=== PATIENT | female | born 1960 | race Caucasian/White ===

== ENCOUNTER 2016-04-04 17:47 | Emergency (ER) | payer OTHER ==
[2016-04-04 18:43] VITALS: BP 133/89
--- NOTE | 2016-04-04 19:38 | UC ---
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 - History of Current Complaint Chief Complaint: UCLowerExtremity Stated Complaint: KNEE PAIN Time Seen by Provider: 04/04/16 19:13 Hx Obtained From: Patient Hx Last Menstrual Period: 2.5 weeks ago - irregular as she's going through menopause ?: No Onset/Duration: Gradual Onset, Lasting Days, Still Present Severity Initially: Mild Severity Currently: Moderate Character: Aching, Stiffness Aggravating Factor(s): Nothing Alleviating Factor(s): Nothing Associated Signs And Symptoms: Positive: Swelling - posterior right knee Able to Bear Weight: Yes - Allergies/Home Medications Allergies/Adverse Reactions: Allergies Allergy/AdvReac Type Severity Reaction Status Date / Time No Known Allergies Allergy Verified 08/30/12 08:55 Home Medications: Home Medications Aspirin [Eq Aspirin] 325 mg PO 04/04/16 [History] Fluticasone NASAL SPRAY 50MCG* [Flonase NASAL SPRAY 50MCG*] 2 spray BOTH NARES DAILY 04/04/16 [History Confirmed 04/04/16] PMH/Surg Hx/FS Hx/Imm Hx Previously Healthy: Yes Endocrine History Of: Denies: Diabetes, Thyroid Disease Cardiovascular History Of: Denies: Cardiac Disorders, Hypertension Respiratory History Of: Denies: COPD, Asthma GI/ History Of: Denies: Ulcer Cancer History Of: Denies: Breast Cancer - Surgical History Surgical History: Yes Surgery Procedure, Year, and Place: csection x 3, carpal tunnel right - Family History Known Family History: Positive: Cardiac Disease - Social History Occupation: Employed Full-time Lives: With Family Alcohol Use: Occasionally Substance Use Type: None Smoking Status (MU): Never Smoked Tobacco Review of Systems Constitutional: Negative Skin: Bruising - patient feels the area feels bruised Eyes: Negative ENT: Negative Respiratory: Negative Cardiovascular: Negative Gastrointestinal: Negative Genitourinary: Negative Motor: Negative Neurovascular: Negative Musculoskeletal: Myalgia - posterior right knee and proximal calf Neurological: Negative Psychological: Negative All Other Systems Reviewed And Are Negative: Yes Physical Exam Triage Information Reviewed: Yes Appearance: Well-Appearing, No Pain Distress, Well-Nourished Vital Signs: Initial Vital Signs Temp 97.9 F 04/04/16 18:38 Pulse 67 04/04/16 18:38 Resp 18 04/04/16 18:38 BP 133/89 04/04/16 18:38 Pulse Ox 99 04/04/16 18:38 Vital Signs Reviewed: Yes Eye Exam: Normal Eyes: Positive: Conjunctiva Clear ENT Exam: Normal ENT: Positive: Normal ENT inspection, Hearing grossly normal. Negative: Nasal congestion, Nasal drainage, Trismus, Muffled/hoarse voice Dental Exam: Normal Neck exam: Normal Neck: Positive: Supple, Nontender Respiratory Exam: Normal Respiratory: Positive: Chest non-tender, Lungs clear, Normal breath sounds, No respiratory distress, No accessory muscle use Cardiovascular Exam: Normal Cardiovascular: Positive: RRR, No Murmur, Pulses Normal, Brisk Capillary Refill Musculoskeletal Exam: Normal Musculoskeletal: Positive: Strength Intact, ROM Intact, No Edema Neurological Exam: Normal Neurological: Positive: Alert, Muscle Tone Normal Psychological Exam: Normal Skin Exam: Normal Knee Pain Course/Dx - Course Course Of Treatment: transfer to [facility] [place] - Differential Dx/Diagnosis Differential Diagnosis/HQI/PQRI: Abrasion, DVT, Other - bakers cyst Provider Diagnoses: R knee pain - Physician Notifications Discussed Patient Care With: Katheryn GANDARA Time Discussed With Above Provider: 19:45 Instructed by Provider To: Transfer Discharge - Discharge Plan Condition: Guarded Disposition: AGAINST MEDICAL ADVICE Referrals: Rebekah Bernstein MD [Primary Care Provider] -
== END 2016-04-04 20:10 | disposition left against medical advice (07) ==
LOC: UCEAST 17:47
DX: M25.561 Pain in right knee (principal); M25.461 Effusion, right knee
CPT/HCPCS: 99212; G0463

== ENCOUNTER 2016-04-04 20:32 | Emergency (ER) | payer OTHER ==
--- NOTE | 2016-04-05 00:16 | ED ---
Lower Extremity - HPI Summary HPI Summary: 55 female presents from [facility] complaining of right lower extremity pain that began 2-3 days ago and has been progressively been getting worse. Patient states the pain is aching and "Feels like something is there that shouldn't be". The pain gets worse when putting pressure on her leg, such as walking, pushing off the wall with swimming and pushing down a gas pedal while driving. She also states it is worse when she keeps her leg still for long periods of time without moving it. She had a difficulty time sleeping last night. She has no history of blood clots and no pertinent medical history. She takes aspirin per her primary care doctor due to positive family history. Aspirin is all she has taken for this pain. She is taking hormonal replacement therapy. Denies difficulty breathing or chest pain at this time. Denies recent travel, prolonged bedrest and tobacco use. Has no noticed any swelling or redness. No injury or trauma recently. She does recall an injury last September 2015 to the same area but was never diagnosed with a specific injury, was told it was possibly a gibbs's cyst at the time. no problems since then until now. Patient does work out every day and has not stopped since the pain began. - History of Current Complaint Chief Complaint: EDExtremityLower Stated Complaint: UCEAST XFER-R/O BLOOD CLOT RIGHT LEG Time Seen by Provider: 04/04/16 22:16 Hx Obtained From: Patient Hx Last Menstrual Period: 2.5 weeks ago - irregular as she's going through menopause, also on HRT Onset/Duration: Worse Since Severity Initially: Mild Severity Currently: Moderate Pain Intensity: 6 Pain Scale Used: 0-10 Numeric Timing: Constant Location: Is Discrete @ - posterior right calf just below the knee, more towards the lateral side Character Of Pain: Aching Associated Signs And Symptoms: Positive: Negative Aggravating Factor(s): Ambulation, Weight Bearing Alleviating Factor(s): Rest, Elevation Able to Bear Weight: Yes - Risk Factors DVT Risk Factors: Oral Contraceptives - HRT - Allergies/Home Medications Allergies/Adverse Reactions: Allergies Allergy/AdvReac Type Severity Reaction Status Date / Time No Known Allergies Allergy Verified 08/30/12 08:55 PMH/Surg Hx/FS Hx/Imm Hx Endocrine/Hematology History: Denies: Hx Diabetes, Hx Thyroid Disease Cardiovascular History: Denies: Hx Hypertension Respiratory History: Denies: Hx Asthma, Hx Chronic Obstructive Pulmonary Disease (COPD) GI History: Reports: Other GI Disorders - pelvic pain Denies: Hx Ulcer Musculoskeletal History: Reports: Other Musculoskeletal History - osteoarthritis Denies: Hx Osteoporosis - Cancer History Hx Chemotherapy: No Hx Radiation Therapy: No - Surgical History Surgery Procedure, Year, and Place: csection x 3, carpal tunnel right Infectious Disease History: No Infectious Disease History: Denies: Hx Hepatitis, Hx Human Immunodeficiency Virus (HIV), Traveled Outside the [place] in Last 30 Days - Family History Known Family History: Positive: Cardiac Disease, Hypertension, Diabetes - Social History Alcohol Use: Occasionally Substance Use Type: Reports: None Smoking Status (MU): Never Smoked Tobacco Review of Systems Constitutional: Negative Eyes: Negative ENT: Negative Cardiovascular: Negative Respiratory: Negative Gastrointestinal: Negative Genitourinary: Negative Positive: Arthralgia, Myalgia - right calf Skin: Negative Neurological: Negative Psychological: Normal All Other Systems Reviewed And Are Negative: Yes Physical Exam Triage Information Reviewed: Yes Vital Signs On Initial Exam: Initial Vitals Temp Pulse Resp BP Pulse Ox 97.7 F 66 16 114/77 99 04/04/16 20:50 04/04/16 20:50 04/04/16 20:50 04/04/16 20:50 04/04/16 20:50 not tachycardic or hypoxic Vital Signs Reviewed: Yes Appearance: Positive: Well-Appearing, No Pain Distress, Well-Nourished Skin: Positive: Warm, Skin Color Reflects Adequate Perfusion - < 2 seconds, Dry Head/Face: Positive: Normal Head/Face Inspection Eyes: Positive: Conjunctiva Clear ENT: Positive: Hearing grossly normal Dental: Negative: Cervical Lymphadenopathy Neck: Positive: Supple, Nontender Respiratory/Lung Sounds: Positive: Clear to Auscultation, Breath Sounds Present Cardiovascular: Positive: Normal, RRR, Pulses are Symmetrical in both Upper and Lower Extremities - 2+ pedal b/l. Negative: Leg Edema Left, Leg Edema Right Abdomen Description: Positive: Nontender Bowel Sounds: Positive: Present Musculoskeletal: Positive: Normal - no signs of deformity, edema, eryhema, ecchymosis noted., Strength/ROM Intact, Pain @ - discomfort on palpation of right posterior calf just below the knee, more on lateral side. Negative: María Sign Left, María Sign Right, Edema Left, Edema Right Neurological: Positive: Normal, Sensory/Motor Intact, Alert, Oriented to Person Place, Time, CN Intact II-III, Reflexes Intact Psychiatric: Positive: Normal Diagnostics - Vital Signs Vital Signs Temp Pulse Resp BP Pulse Ox 04/04/16 21:30 98.3 F 117 120/76 99 04/04/16 20:50 97.7 F 66 16 114/77 99 - Laboratory Lab Statement: Any lab studies that have been ordered have been reviewed, and results considered in the medical decision making process. - Ultrasound No standard instances Ultrasound Interpretation: No Acute Changes - No DVT. Ultrasound Interpretation Completed By: Radiologist Re-Evaluation - Re-Evaluation First Eval Re-Evaluation Time: 00:29 Change: Unchanged Comment: patient is still doing ok. updated on current plan and denies pain management at this time Lower Extremity Course/Dx - Course Course Of Treatment: US of right lower extremity obtained and negative. patient refused pain management at this time and states she will take OTC ibuprofen at home for the pain. aware of worsening signs and symptoms to watch out for. - Diagnoses Differential Diagnosis/HQI/PQRI: Positive: Contusion, Phlebitis, Sprain, Strain Provider Diagnoses: Strain of calf muscle Discharge - Discharge Plan Condition: Stable Disposition: HOME Patient Education Materials: Muscle Strain (ED) Referrals: Rebekah Bernstein MD [Primary Care Provider] - Additional Instructions: Take Ibuprofen as needed to help with pain and inflammation. Rest and ice/heat the area of pain. Refrain from physical activity until symptoms resolve. Symptoms may last 7 days. If symptoms worsen such as increasing pain or new symptoms develop such as swelling, redness, numbness/tingling or difficulty breathing please seek medical attention promptly. Follow-up with primary care doctor is recommended.
[2016-04-05 01:39] VITALS: BP 121/79
--- NOTE | 2016-04-05 07:51 | RAD ---
HISTORY: Swelling of right lower extremity COMPARISONS: None relevant TECHNIQUE: Multiple transverse and longitudinal ultrasound images were obtained of the right lower extremity from the level of the common femoral vein inferiorly through to the infrapopliteal veins using grayscale, color Doppler, and spectral Doppler imaging with and without compression and with augmentation. Comparison images were obtained of the contralateral common femoral vein. FINDINGS: VEINS: The venous system of the right lower extremity is compressible throughout its course, with normal flow on color Doppler imaging and normal response to augmentation on spectral Doppler imaging. SOFT TISSUES: Unremarkable. OTHER FINDINGS: None. IMPRESSION: NO RIGHT LOWER EXTREMITY DEEP VEIN THROMBOSIS
== END 2016-04-05 01:37 | disposition home or self-care (01) ==
LOC: ED 20:32
DX: S86.911A Strain of unspecified muscle(s) and tendon(s) at lower leg level, right leg, initial encounter (principal); M79.604 Pain in right leg; X58.XXXA Exposure to other specified factors, initial encounter; Y93.9 Activity, unspecified; Y92.9 Unspecified place or not applicable; Y99.9 Unspecified external cause status
CPT/HCPCS: 99282